=== PATIENT | male | born 1970 | race Caucasian/White ===

== ENCOUNTER 2018-08-05 00:31 | Emergency (ER) | payer OTHER ==
[~2018-08-05] VITALS: Ht 182.9 cm; Wt 141.0 kg
[2018-08-05] MEDS ORDERED: VOLTAREN - GENE75 MG PO (01:33)
[2018-08-05] MEDS ORDERED: TRAMADOL HCL50 MG PO (01:33)
[2018-08-05 02:04] VITALS: BP 140/78
== END 2018-08-05 02:04 | disposition home or self-care (01) | DRG 563 ==
LOC: ED 00:31
DX: S83.92XA Sprain of unspecified site of left knee, initial encounter (principal); M25.462 Effusion, left knee; W01.0XXA Fall on same level from slipping, tripping and stumbling without subsequent striking against object, initial encounter; Y93.01 Activity, walking, marching and hiking; Y92.148 Other place in prison as the place of occurrence of the external cause; Y99.0 Civilian activity done for income or pay

== ENCOUNTER 2020-02-25 02:54 | Emergency (ER) | payer OTHER ==
[~2020-02-25 02:54] MED LIST: TRAMADOL HCL50 MG PO; VOLTAREN - GENE75 MG PO
[2020-02-25 05:00] VITALS: BP 162/75
== END 2020-02-25 05:00 | disposition home or self-care (01) | DRG 880 ==
LOC: ED 02:54
DX: F41.0 Panic disorder [episodic paroxysmal anxiety] (principal); I10 Essential (primary) hypertension; G47.30 Sleep apnea, unspecified

== ENCOUNTER 2020-03-09 13:50 | Emergency (ER) | payer OTHER ==
[~2020-03-09] VITALS: Ht 182.9 cm; Wt 154.5 kg
[2020-03-09] MEDS ORDERED: LISINOPRIL20 M1 PO (15:07)
[2020-03-09 16:30] VITALS: BP 159/79
== END 2020-03-09 16:30 | disposition home or self-care (01) | DRG 563 ==
LOC: ED 13:50
DX: S93.402A Sprain of unspecified ligament of left ankle, initial encounter (principal); I10 Essential (primary) hypertension; X50.0XXA Overexertion from strenuous movement or load, initial encounter; Y93.89 Activity, other specified; Y92.009 Unspecified place in unspecified non-institutional (private) residence as the place of occurrence of the external cause; Z11.59 Encounter for screening for other viral diseases

== ENCOUNTER 2024-10-06 09:10 | Emergency (ER) | payer BC ==
[~2024-10-06] VITALS: Ht 182.9 cm; Wt 149.6 kg
[~2024-10-06 09:10] MED LIST changes: +LISINOPRIL20 M1 PO
[2024-10-06 09:22] VITALS: BP 122/77
[2024-10-06 09:30] VITALS: BP 127/79
[2024-10-06 09:45] VITALS: BP 137/78
[2024-10-06] MEDS ORDERED: KETOROLAC TROMETHAMINE 30 MG/ML SDV IM ONE (09:50)
[2024-10-06] MEDS ORDERED: CYCLOBENZAPRINE10 MG PO (09:52)
[2024-10-06] MEDS ORDERED: NABUMETONE750 MG PO (09:52)
[2024-10-06 09:55] VITALS: BP 137/78
[2024-10-06] MEDS ORDERED: CYCLOBENZAPRINE HCL 5 MG TAB PO ONE (09:55)
== END 2024-10-06 10:02 | disposition home or self-care (01) | DRG 552 ==
LOC: ED 09:10
DX: S23.3XXA Sprain of ligaments of thoracic spine, initial encounter (principal); I10 Essential (primary) hypertension; X58.XXXA Exposure to other specified factors, initial encounter
CPT/HCPCS: J1100

== ENCOUNTER 2024-12-01 11:05 | Emergency (ER) | payer BC ==
[~2024-12-01] VITALS: Ht 182.9 cm; Wt 147.0 kg
[2024-12-01] VITALS (8 sets, daily range): BP systolic 107–131; BP diastolic 56–82
[~2024-12-01 11:05] MED LIST changes: +CYCLOBENZAPRINE10 MG PO; +NABUMETONE750 MG PO
[2024-12-01 11:58] LABS: BASO% 0.4 % (0-3); HEMATOCRIT 41.6 % (39.0-50.0); HEMOGLOBIN 13.9 g/dl (14.0-18.0); IMMATURE GRANULOCYTES 0.2 % (0.0-5.0); LYMPH% 23.7 % (15-41); MEAN CELL VOLUME 85.8 fL CALC (80.0-100.0); MEAN CORPUSCULAR HGB 28.7 pG CALC (26.0-32.0); MEAN CORPUSCULAR HGB CONC 33.4 g/dL CAL (32.0-36.0); NEUT# 5.48 thou/uL (1.82-7.42); NEUT% 65.7 % (42-76); RED BLOOD COUNT 4.85 mill/uL (4.70-6.10); RED CELL DISTRI WIDTH 12.8 % (11.5-15.5)
[2024-12-01 12:10] LABS: ALBUMIN 4.4 g/dL (3.2-5.0); CREATININE 0.7 mg/dL (0.7-1.3); POTASSIUM 4.5 mmol/l (3.5-5.1); TOTAL PROTEIN 7.7 g/dL (6.3-8.2)
[2024-12-01 12:40] LABS: TSH, 3RD GENERATION 0.62 uIU/mL (0.47 - 4.68)
== END 2024-12-01 12:54 | disposition home or self-care (01) | DRG 880 ==
LOC: ED 11:05
PROVIDERS: Family Medicine
DX: F41.9 Anxiety disorder, unspecified (principal)